=== PATIENT | male | born 1945 | race Caucasian/White ===

== ENCOUNTER 2016-05-26 11:29 | Observation (INO) | payer OTHER ==
[2016-05-26] MEDS ORDERED: NS 1,000 ML IV ONE (11:36)
[2016-05-26] MEDS ORDERED: FAMOTIDINE 20 MG TAB PO ONE (11:36)
[2016-05-26] MEDS ORDERED: diphenhydrAMINE 25 MG CAP PO ONE ×2 (11:36→12:02)
[2016-05-26] MEDS ORDERED: ASPIRIN EC 325 MG TAB PO ONE ×2 (11:36→12:02)
[2016-05-26] MEDS ORDERED: DIAZEPAM 5 MG TAB PO ONE (11:36)
--- NOTE | 2016-05-26 11:58 | CPEKG ---
Heart Rate: 53 RR Interval: 1132 P-R Interval: 188 QRSD Interval: 98 QT Interval: 424 QTC Interval: 399 P [place]: 2 QRS [place]: -40 T Wave [place]: 101 EKG Severity - ABNORMAL ECG - EKG Impression: SINUS RHYTHM EKG Impression: LEFT AXIS DEVIATION EKG Impression: LVH WITH SECONDARY REPOLARIZATION ABNORMALITY Electronically Signed By: Yaa Carlos 26-May-2016 15:23:54
[2016-05-26] MEDS ORDERED: FAMOTIDINE 20 MG TAB ONE (12:02)
[2016-05-26] MEDS ORDERED: DIAZEPAM 5 MG TAB ONE (12:02)
[2016-05-26 12:17] LABS: % IMMATURE GRANULYOCYTES 0.3 % (0.0-1.1); ABSOLUTE IMMATURE GRANULOCYTES 0.02 10^3/uL (0.00-0.10); ADD DIFF? NO; ADD MORPH? NO; ADD SCAN? NO; ATYPICAL LYMPHOCYTE FLAG 0 (0-99); FRAGMENT RBC FLAG 0 (0-99); HEMATOCRIT 45.6 % (40.0-51.0); HEMOGLOBIN 16.1 g/dL (13.7-17.5); LEFT SHIFT FLG 0 (0-99); LIPEMIA HEMOLYSIS FLAG 90 (0-99); MEAN CELL HEMOGLOBIN 29.9 pg (27.9-34.1); MEAN CELL HEMOGLOBIN CONCENTR. 35.3 g/dL (32.4-36.7); MEAN CELL VOLUME 84.6 fL (81.5-99.8); MEAN PLATELET VOLUME 10.3 fL (8.7-11.7); PLATELET CLUMPS FLAG 0 (0-99); PLATELET COUNT 167 10^3/uL (150-400); RED BLOOD CELL COUNT 5.39 10^6/uL (4.40-6.38); RED CELL DISTRIBUTION WIDTH 13.8 % (11.5-15.2)
[2016-05-26 12:32] LABS: INR 1.01 (0.83-1.16); PROTIME(PATIENT) 13.2 SEC (12.0-15.0)
[2016-05-26 12:33] LABS: ANION GAP 12 mEq/L (8-16); CALCIUM 9.2 mg/dL (8.5-10.4); CARBON DIOXIDE 21 mEq/l (22-31); CHLORIDE 109 mEq/L (97-110); CHOLESTEROL 283 mg/dL (140-220); CHOLESTEROL/HDL RATIO 8.58 RATIO (1.00-4.97); CREATININE 1.6 mg/dL (0.7-1.3); GLOMERULAR FILTRATION RATE 43; GLUCOSE 84 mg/dL (70-100); HIGH DENSITY LIPOPROTEIN 33 mg/dL (40-65); MAGNESIUM 2.1 mg/dL (1.6-2.3); NON-HIGH DENSITY LIPOPROTEIN 250 mg/dL (90-129); POTASSIUM 4.4 mEq/L (3.5-5.2); SODIUM 142 mEq/L (134-144)
[2016-05-26 13:22] LABS: TRIGLYCERIDE 1051 mg/dL (40-150)
[2016-05-26] MEDS ORDERED: LIDOCAINE 1% 30 ML SDV ONE (13:57)
[2016-05-26] MEDS ORDERED: fentaNYL 100 MCG/2 ML INJ ONE (13:57)
[2016-05-26] MEDS ORDERED: IOPAMIDOL (ISOVUE-300) 200 ML BTL IV ONE ×2 (13:58→14:54)
[2016-05-26] MEDS ORDERED: HEPARIN 10,000 UNIT/10 ML MDV ONE (13:58)
[2016-05-26] MEDS ORDERED: MIDAZOLAM 2 MG/2 ML VIAL ONE ×2 (13:58→15:03)
[2016-05-26] MEDS ORDERED: VERAPAMIL 5 MG/2 ML VIAL ONE (13:58)
[2016-05-26] MEDS ORDERED: NITROGLYCERIN 1,500 MCG/15 ML VIAL MISC ONE (14:53)
[2016-05-26] MEDS ORDERED: hydrALAZINE 20 MG/ML VIAL ONE (15:13)
[2016-05-26] MEDS ORDERED: CLOPIDOGREL BISULFATE 75 MG TAB ONE (15:30)
--- NOTE | 2016-05-26 15:45 | PDDXCAT ---
Diagnostic Cath Note - . Date: 05/26/16 Intervention: Yes (see below) *Procedure Indication: New onset CCS III angina, known peripheral vascular disease s/p PCI. Access: right radial artery (a plethysmography trace assisted Edu's test was used to document dual artery supply to the hand and index finger prior to vascular access). Procedure: 1. selective coronary angiography 2. left heart catheterization 3. left ventriculogram 4. drug eluting stent implantation in the distal and proximal LAD *Materials Selective Coronary Angiography Size: 7F Selective Coronary Angiography and Left Heart Cath Materials: JL3.5, JR4.0, pigtail, Intuition Guide Wire, 2.5 x 15 mm Emerge, 3.0 x 28 mm Synergy drug eluting stent, 4.0 x 12 mm Synergy drug eluting stent, 5 x 8 mm Emerge balloon. *Findings-Selective coronary angiography LM: The left main is 4mm in size, short and quickly bifurcates into an LAD and circumflex system. There is a 40% ostial lesion with MAYURI III flow. LAD: The proximal LAD has a 99% stenosis with MAYURI II flow. There is also an 80 % mid LAD lesion with MAYURI II flow. There is an aneurysmal segment in the proximal LAD. These lesions were repaired with stent implantation as outlined below. LCX: The left circumflex has a high obtuse marginal branch. There is maximal luminal stenosis of 30% which is ~20 mm in length. There are luminal irregularities consistent with atherosclerosis with no flow-limiting disease and MAYURI III flow throughout. RCA: The right coronary artery is dominant and ~3.5 mm in size with maximal luminal stenosis of 30% in the mid RCA. There is no evidence of flow-limiting disease with MAYURI III flow throughout. *Findings-Left Heart Catheterization LVEDP: 21 mmHg Ejection Fraction: 50% Wall motion analysis: There is distal and anterior wall hypokinesis on left ventriculogram. AO: 166/77/109 mmHg *Intervention Intervention: A 7 [place] JR3.5 guiding catheter was used for guide catheter support. A 0.014" Intuition Guide Wire was advanced to the distal left anterior descending under direct fluoroscopic and angiographic guidance. Angiomax bolus and continuous infusion were given continuously with a documented ACT over 300 seconds. A 2.5 x 15 mm Emerge was placed in the proximal LAD and was used to predilate the lesion under 10 edin of pressure. S/p balloon inflation, a 3.0 x 28 mm Synergy drug eluting stent was placed in the distal LAD lesion (80% plaque area stenosis with MAYURI II flow) and inflated to 14 edin of pressure. There were excellent angiographic results in the distal LAD with 0% residual stenosis and MAYURI III flow s/p stent implantation. We then turned our attention to the proximal LAD lesion (99% with MAYURI II flow) . A 4.0 x 12 mm Synergy drug eluting stent was placed in the lesion and was inflated to a maximum of 18 edin of pressure. S/p stent implantation, the stent was exchanged for a 5 x 8 mm Emerge balloon which was postdilated the lesion up to 16 edin of pressure. There was 5% residual stenosis in the proximal LAD with MAYURI III flow throughout. *Summary Complications: None Estimated blood loss: <50ml Closure method: TR band Assessment: 1. Severe [place] ira vessel coronary artery disease including flow-limiting obstruction of the distal and proximal left anterior descending repaired with 3.0 x 28 mm and 4.0 x 12 mm Synergy drug eluting stents to the distal and proximal vessel, respectively. 2. Low-normal ejection fraction at 50% with mild distal and anterior wall hypokinesis on left ventriculogram and elevate LVEDP at 21 mmHg. The patient will need to be on dual antiplatelet therapy with ASA and Plavix for at least 90 days s/p stent implantation (I have recommend 1 year of dual anti-platelet therapy; however, the patient does not want to be on this medication more then 90 days). The patient has also agreed to be placed on daily statin therapy for a 90 day period. Ideally, his blood pressure should be treated to systolic <135 mmHg and continuous statin therapy to achieve a non- HDL <100 mg/dL. The patient is reticent to take medications that are developed and manufactured by [employer].
[2016-05-26] MEDS ORDERED: ONDANSETRON 4 MG/2 ML VIAL IVP PRN (15:57)
[2016-05-26] MEDS ORDERED: TEMAZEPAM 15 MG CAP PO PRN (15:57)
[2016-05-26] MEDS ORDERED: LORazepam 2 MG/ML INJ IVP PRN (15:57)
[2016-05-26] MEDS ORDERED: ATROPINE SULFATE 1 MG/10 ML SYR IVP PRN (15:57)
[2016-05-26] MEDS ORDERED: ONDANSETRON DISINTEGRATING 4 MG TAB PO PRN (15:57)
[2016-05-26] MEDS ORDERED: CLOPIDOGREL BISULFATE 75 MG TAB PO ONE (15:57)
[2016-05-26] MEDS ORDERED: ACETAMINOPHEN 325 MG TAB PO PRN (15:57)
[2016-05-26] MEDS ORDERED: NITROGLYCERIN 0.4 MG BTL SL PRN (15:57)
[2016-05-26] MEDS ORDERED: NS 1,000 ML IV SCH (16:00)
--- NOTE | 2016-05-26 16:52 | CPEKG ---
Heart Rate: 63 RR Interval: 952 P-R Interval: 200 QRSD Interval: 102 QT Interval: 432 QTC Interval: 443 P [place]: 56 QRS [place]: -39 T Wave [place]: 97 EKG Severity - ABNORMAL ECG - EKG Impression: SINUS RHYTHM EKG Impression: LEFT AXIS DEVIATION EKG Impression: NONSPECIFIC T ABNORMALITIES, LATERAL LEADS Electronically Signed By: Yaa Carlos 27-May-2016 15:10:17
[2016-05-27 05:11] LABS: % IMMATURE GRANULYOCYTES 0.3 % (0.0-1.1); ABSOLUTE IMMATURE GRANULOCYTES 0.02 10^3/uL (0.00-0.10); ADD DIFF? NO; ADD MORPH? NO; ADD SCAN? NO; ATYPICAL LYMPHOCYTE FLAG 0 (0-99); FRAGMENT RBC FLAG 20 (0-99); HEMATOCRIT 41.1 % (40.0-51.0); HEMOGLOBIN 14.2 g/dL (13.7-17.5); LEFT SHIFT FLG 0 (0-99); LIPEMIA HEMOLYSIS FLAG 90 (0-99); MEAN CELL HEMOGLOBIN 28.9 pg (27.9-34.1); MEAN CELL HEMOGLOBIN CONCENTR. 34.5 g/dL (32.4-36.7); MEAN CELL VOLUME 83.7 fL (81.5-99.8); MEAN PLATELET VOLUME 10.9 fL (8.7-11.7); PLATELET CLUMPS FLAG 0 (0-99); PLATELET COUNT 159 10^3/uL (150-400); RED BLOOD CELL COUNT 4.91 10^6/uL (4.40-6.38); RED CELL DISTRIBUTION WIDTH 13.9 % (11.5-15.2)
[2016-05-27 05:27] LABS: ALBUMIN 3.8 g/dL (3.5-5.0); ANION GAP 11 mEq/L (8-16); ASPARTATE AMINOTRANSFERASE 23 IU/L (17-59); BILIRUBIN,TOTAL 1.6 mg/dL (0.1-1.4); CALCIUM 8.8 mg/dL (8.5-10.4); CARBON DIOXIDE 18 mEq/l (22-31); CHLORIDE 110 mEq/L (97-110); CREATININE 1.5 mg/dL (0.7-1.3); GLOMERULAR FILTRATION RATE 47; GLUCOSE 81 mg/dL (70-100); LACTATE DEHYDROGENASE 407 IU/L (313-618); MAGNESIUM 2.1 mg/dL (1.6-2.3); SODIUM 139 mEq/L (134-144)
--- NOTE | 2016-05-27 08:40 | CPEKG ---
Heart Rate: 72 RR Interval: 833 P-R Interval: 204 QRSD Interval: 96 QT Interval: 400 QTC Interval: 438 P [place]: 48 QRS [place]: -39 T Wave [place]: 114 EKG Severity - ABNORMAL ECG - EKG Impression: SINUS RHYTHM EKG Impression: LEFT AXIS DEVIATION EKG Impression: ABNORMAL T, CONSIDER ISCHEMIA, LATERAL LEADS Electronically Signed By: Yaa Carlos 27-May-2016 15:10:06
[2016-05-27] MEDS ORDERED: ASPIRIN EC 325 MG TAB PO SCH (09:00)
[2016-05-27] MEDS ORDERED: CLOPIDOGREL BISULFATE 75 MG TAB PO SCH (09:00)
[2016-05-27 12:38] VITALS: PULSE 70; RESP 16; TEMP 98.1; O2SAT 96
[2016-05-27 15:01] VITALS: BP 172/85
== END 2016-05-27 13:31 | disposition home or self-care (01) ==
LOC: FCATH 11:29 → F2W 15:57 → UNDOADMOB 15:57 → F2W 19:59
PROVIDERS: ADMIT Internal Medicine Cardiovascular Disease; ATTEND Internal Medicine Cardiovascular Disease
PROC: 027035Z Dilation of Coronary Artery, One Artery with Two Drug-eluting Intraluminal Devices, Percutaneous Approach (ICD-10-PCS; principal; 2016-05-26)
PROC: 4A023N7 Measurement of Cardiac Sampling and Pressure, Left Heart, Percutaneous Approach (ICD-10-PCS; principal; 2016-05-26)
PROC: B2111ZZ Fluoroscopy of Multiple Coronary Arteries using Low Osmolar Contrast (ICD-10-PCS; principal; 2016-05-26)
PROC: B2151ZZ Fluoroscopy of Left Heart using Low Osmolar Contrast (ICD-10-PCS; principal; 2016-05-26)
DX: I25.119 Atherosclerotic heart disease of native coronary artery with unspecified angina pectoris (principal); I73.9 Peripheral vascular disease, unspecified; I12.9 Hypertensive chronic kidney disease with stage 1 through stage 4 chronic kidney disease, or unspecified chronic kidney disease; N18.9 Chronic kidney disease, unspecified; E78.5 Hyperlipidemia, unspecified; N28.9 Disorder of kidney and ureter, unspecified; E78.1 Pure hyperglyceridemia; E03.9 Hypothyroidism, unspecified; R35.1 Nocturia; Z95.820 Peripheral vascular angioplasty status with implants and grafts
CPT/HCPCS: 93005; 93458; C1725; C1769; C1874; C1887; C9600; G0378; J0360; J1644; J2250; J3010; Q9967